=== PATIENT | male | born 1985 | race Caucasian/White ===

== ENCOUNTER 2019-10-04 04:56 | Emergency (ER) | payer MEDICAID, OTHER ==
[~2019-10-04] VITALS: Ht 177.8 cm; Wt 75.0 kg
[2019-10-04] MEDS ORDERED: azithromycin 250mg tablet PO ONE (05:10)
[2019-10-04] MEDS ORDERED: penicillin G benzathine 1.2 million unit/2ml syringe IM ONE (05:10)
[2019-10-04 06:06] VITALS: BP 142/75
[2019-10-06 09:12] LABS: RPR Reactive (Non Reactive)
== END 2019-10-04 06:07 | disposition home or self-care (01) ==
LOC: ER 04:56
DX: A64 Unspecified sexually transmitted disease (principal); N48.9 Disorder of penis, unspecified; F17.210 Nicotine dependence, cigarettes, uncomplicated; F15.90 Other stimulant use, unspecified, uncomplicated; Z88.8 Allergy status to other drugs, medicaments and biological substances
CPT/HCPCS: 36415; 86592; 96372; 99283; J0561

== ENCOUNTER 2020-04-28 22:17 | Emergency (ER) | payer MEDICAID, OTHER ==
[~2020-04-28] VITALS: Ht 177.8 cm; Wt 81.8 kg
[2020-04-28] MEDS ORDERED: CefTRIAXone 250MG IM Kit w/LIDOcaine IM ONE (23:50)
[2020-04-28] MEDS ORDERED: azithromycin 250mg tablet PO ONE (23:50)
--- NOTE | 2020-04-28 23:54 | NUR ---
patient unable to provide urine sample
[2020-04-28] MEDS ORDERED: ACYC-202 PO (23:56)
[2020-04-28] MEDS ORDERED: HYDR28CR14 TOP (23:56)
--- NOTE | 2020-04-29 00:02 | NUR ---
REFUSING TO TRY AND URINATE, PROVIDER AWARE.
[2020-04-29 00:08] VITALS: BP 147/103
== END 2020-04-29 00:06 | disposition home or self-care (01) ==
LOC: ER 22:17
DX: A64 Unspecified sexually transmitted disease (principal); Z88.8 Allergy status to other drugs, medicaments and biological substances; Z79.899 Other long term (current) drug therapy
CPT/HCPCS: 96372; 99283; J0696

== ENCOUNTER 2020-10-21 02:15 | Emergency (ER) | payer MEDICAID ==
[~2020-10-21] VITALS: Ht 177.8 cm; Wt 77.3 kg
[~2020-10-21 02:15] MED LIST: HYDR28CR14 TOP
[2020-10-21 02:29] VITALS: BP 132/82
== END 2020-10-21 04:43 | disposition left against medical advice (07) ==
LOC: ER 02:15
DX: A64 Unspecified sexually transmitted disease (principal); Z53.21 Procedure and treatment not carried out due to patient leaving prior to being seen by health care provider

== ENCOUNTER 2020-11-27 02:59 | Emergency (ER) | payer MEDICAID ==
[~2020-11-27] VITALS: Ht 180.3 cm; Wt 77.3 kg
[2020-11-27 03:03] VITALS: BP 133/91
--- NOTE | 2020-11-27 06:05 | NUR ---
Patient resting in stretcher with eyes closed- appears to be asleep. Family at bedside with patient, even and unlabored respirations- waiting to be seen by provider
[2020-11-27] MEDS ORDERED: PRED20TA PO (06:12)
== END 2020-11-27 06:38 | disposition home or self-care (01) ==
LOC: ER 03:00
DX: J02.9 Acute pharyngitis, unspecified (principal); R05 Cough; F17.200 Nicotine dependence, unspecified, uncomplicated; F15.90 Other stimulant use, unspecified, uncomplicated; Z88.8 Allergy status to other drugs, medicaments and biological substances; Z79.899 Other long term (current) drug therapy
CPT/HCPCS: 99283

== ENCOUNTER 2020-12-20 23:24 | Emergency (ER) | payer MEDICAID ==
[~2020-12-20] VITALS: Ht 177.8 cm; Wt 83.5 kg
[~2020-12-20 23:24] MED LIST changes: +PRED20TA PO
[2020-12-20 23:50] VITALS: BP 130/84
[2020-12-22] MEDS ORDERED: SULF1TAB45 PO (05:52)
== END 2020-12-21 13:37 | disposition left against medical advice (07) ==
LOC: ER 23:25
DX: L02.414 Cutaneous abscess of left upper limb (principal); Z53.21 Procedure and treatment not carried out due to patient leaving prior to being seen by health care provider

== ENCOUNTER 2020-12-22 04:49 | Emergency (ER) | payer MEDICAID ==
[~2020-12-22] VITALS: Ht 177.8 cm; Wt 73.0 kg
[2020-12-22] MEDS ORDERED: normal saline 1000ML IV soln IV ONE (05:10)
[2020-12-22] MEDS ORDERED: piperacillin/tazo 3.375gm/50ml 50 ML IV ONE (05:10)
[2020-12-22] MEDS ORDERED: LIDOcaine 1% w/epiNEPHrine 1:200,000 30ml vial SQ ONE (05:10)
[2020-12-22] MEDS ORDERED: LIDOcaine 1% W/epiNEPHrine 1:200,000 10ml vial IJ ONE ×2 (05:35→05:50)
[2020-12-22 05:47] LABS: BASOPHILS % (AUTO) 0.3 % (0-1); EOSINOPHILS % (AUTO) 0.2 % (0-6); HEMATOCRIT 34.8 % (42.0-52.0); HEMOGLOBIN 11.5 g/dl (14.0-17.9); LYMPHOCYTES # (AUTO) 1.7 X10'3 (1.1-4.8); LYMPHOCYTES % (AUTO) 13.3 % (21-51); MEAN CORPUSCULAR VOLUME 84.8 FL (78-98); MEAN PLATELET VOLUME 8.4 FL (7.4-10.4); MONOCYTES % (AUTO) 7.3 % (2-12); NEUTROPHILS # (AUTO) 10.3 X10'3 (1.8-7.7); NEUTROPHILS % (AUTO) 78.9 % (42-75); PLATELET COUNT 355 X10'3 (140-440); RED CELL DISTRIBUTION WIDTH 13.2 % (11.5-14.5); WHITE BLOOD COUNT 13.1 X10'3 (4.5-11.0)
[2020-12-22] MEDS ORDERED: sulfamethoxazole/trimethoprim DS (800/160mg) tablet PO ONE (05:50)
[2020-12-22] MEDS ORDERED: HYDROcodone/acetaminophen 10/325mg tab PO ONE (05:50)
[2020-12-22] MEDS ORDERED: SULF1TAB45 PO (05:52)
[2020-12-22 05:58] LABS: ALANINE AMINOTRANSFERASE 19 U/L (12-78); ALBUMIN 3.1 G/DL (3.4-5.0); ALBUMIN/GLOBULIN RATIO 0.7 (1.1-1.5); ALKALINE PHOSPHATASE 80 IU/L (46-116); ANION GAP 7 (8-16); ASPARTATE AMINO TRANSFERASE 17 U/L (10-37); BILIRUBIN,TOTAL 0.5 MG/DL (0.1-1.0); BLOOD UREA NITROGEN 15 MG/DL (7-18); CALCIUM 8.6 MG/DL (8.5-10.1); CHLORIDE 104 MMOL/L (99-107); GLUCOSE 123 MG/DL (70-104); MAGNESIUM 1.9 MG/DL (1.5-2.4); SODIUM 140 MMOL/L (135-145); TOTAL CARBON DIOXIDE 28.6 MMOL/L (24-32); TOTAL PROTEIN 7.5 G/DL (6.4-8.2); eGFR 84 ML/MIN
[2020-12-22 06:17] VITALS: BP 148/107
[2020-12-22 06:34] LABS: POTASSIUM 2.9 MMOL/L (3.5-5.1)
== END 2020-12-22 06:57 | disposition left against medical advice (07) ==
LOC: ER 04:49
DX: L02.414 Cutaneous abscess of left upper limb (principal); L03.114 Cellulitis of left upper limb; M25.512 Pain in left shoulder; F15.90 Other stimulant use, unspecified, uncomplicated; Z88.8 Allergy status to other drugs, medicaments and biological substances; Z79.2 Long term (current) use of antibiotics; Z79.899 Other long term (current) drug therapy
CPT/HCPCS: 10060; 36415; 71045; 76882; 80053; 83605; 83735; 84145; 85025; 87040; 93005; 96365; 99285; J2543; J7030

== ENCOUNTER 2021-03-08 03:03 | Emergency (ER) | payer MEDICAID ==
[~2021-03-08] VITALS: Ht 177.8 cm; Wt 75.0 kg
[~2021-03-08 03:03] MED LIST changes: -PRED20TA PO
[2021-03-08 03:12] VITALS: BP 137/95
[2021-03-08] MEDS ORDERED: CLIN-97 PO (03:35)
[2021-03-08] MEDS ORDERED: EPIN0.3P3 IM (03:35)
[2021-03-08] MEDS ORDERED: clindamycin 150mg capsule PO ONE (03:35)
== END 2021-03-08 03:46 | disposition home or self-care (01) ==
LOC: ER 03:04
DX: L03.115 Cellulitis of right lower limb (principal); M79.671 Pain in right foot; F15.90 Other stimulant use, unspecified, uncomplicated; Z88.8 Allergy status to other drugs, medicaments and biological substances; Z79.2 Long term (current) use of antibiotics; Z79.899 Other long term (current) drug therapy
CPT/HCPCS: 99283

== ENCOUNTER 2024-10-17 13:52 | Emergency (ER) | payer MEDICAID ==
[~2024-10-17] VITALS: Ht 177.8 cm; Wt 83.0 kg
[~2024-10-17 13:52] MED LIST changes: +CLIN-97 PO; +EPIN0.3P3 IM
[2024-10-17 13:57] VITALS: BP 156/94; PULSE 104; RESP 17; TEMP 97.1; O2SAT 96
[2024-10-17] MEDS ORDERED: AMOX-580 PO (14:30)
[2024-10-17] MEDS ORDERED: IBUP-864 PO (14:31)
== END 2024-10-17 14:30 | disposition home or self-care (01) ==
LOC: ER 13:52
DX: K04.7 Periapical abscess without sinus (principal)
CPT/HCPCS: 99283